=== PATIENT | male | born 1980 | race Caucasian/White ===

== ENCOUNTER 2023-08-01 10:20 | Outpatient (CLI) | payer BC, SELFPAY ==
[2023-08-01 10:41] LABS: Hematocrit 43.2 % (42.0-52.0); Hemoglobin 13.9 g/dL (14.0-18.0); Mean Corpuscular HGB Conc 32.2 g/dl (32-36); Mean Corpuscular Hemoglobin 29.8 pg (26-34); Mean Corpuscular Volume 92.5 fl (80-100); Mean Platelet Volume 11.3 fl (7.4-10.4); Platelet Count Result 224 k/mm3 (150-375); Red Blood Count 4.67 M/mm3 (4.6-6.20); Red Cell Distribution Width 12.2 % (11.5-14.5); White Blood Count 6.6 K/mm3 (4.5-10.0)
[2023-08-01 10:56] LABS: Alanine Aminotransferase 16 U/L (6-50); Albumin Level 4.5 g/dL (3.5-5.1); Alkaline Phosphatase 72 U/L (38-126); Anion Gap 5 mmol/L (8-16); Aspartate Amino Transferase 24 U/L (17-59); Bilirubin,Total 0.6 mg/dL (0.2-1.3); Blood Urea Nitrogen 13 mg/dL (9-20); Calcium 9.2 mg/dL (8.4-10.2); Carbon Dioxide 31 mmol/L (22-30); Chloride 102 mmol/L (98-107); Cholesterol 217 mg/dL (0-200); Estimated Glomerular Filt Rate > 60; Glucose 93 mg/dL (65-110); HDL Direct 43 mg/dL; Potassium 3.7 mmol/L (3.4-5.0); Sodium 138 mmol/L (137-145); Triglycerides 194 mg/dL (<150)
[2023-08-01 11:08] LABS: LDL Cholesterol Direct 120 mg/dL
[2023-08-01 11:15] LABS: Vitamin D 25 Hydroxy 50.8 ng/mL
[2023-08-04 15:26] LABS: Testosterone Free 77.3 pg/mL (35.0-155.0); Testosterone Total 499 ng/dL (250-1100)
== END 2023-08-01 10:21 | disposition home or self-care (01) ==
LOC: ANHLAB 10:22
PROVIDERS: PCP Family Medicine; Visit Provider Family Medicine
DX: Z00.00 Encounter for general adult medical examination without abnormal findings (principal); R53.83 Other fatigue; M25.529 Pain in unspecified elbow; M77.00 Medial epicondylitis, unspecified elbow
CPT/HCPCS: 36415; 80053; 80061; 82306; 84402; 84403; 84443; 85027